=== PATIENT | male | born 1995 | race Caucasian/White ===

== ENCOUNTER 2018-04-02 15:06 | Emergency (ER) | payer BC, MEDICAID ==
[2018-04-02 15:44] VITALS: BP 129/74
[2018-04-02] MEDS ORDERED: DOXYcycline CAP(*) 100 MG PO ONE (15:51)
--- NOTE | 2018-04-02 15:51 | UC ---
Skin Complaint HPI - HPI Summary HPI Summary: 23 yo male presents with tick bite. He tells me that 72 hours ago he was bitten by a tick on his lower abdomen. He thinks the tick was attached about 12 hours and he removed it. Says it was not engorged. He states that he has had lyme disease in the past and is adamantly requesting prophylactic doxycycline treatment today. Denies fever, chills, headache, dizziness, joint pain. - History of Current Complaint Chief Complaint: UCSkin Time Seen by Provider: 04/02/18 15:47 Stated Complaint: TICK BITE Hx Obtained From: Patient Onset/Duration: Sudden Onset Onset Severity: Mild Current Severity: Mild Pain Intensity: 2 Pain Scale Used: 0-10 Numeric - Allergy/Home Medications Allergies/Adverse Reactions: Allergies Allergy/AdvReac Type Severity Reaction Status Date / Time No Known Allergies Allergy Verified 04/02/18 15:44 Home Medications: Home Medications Levothyroxine TAB* [Synthroid TAB*] 75 mcg PO 0800 04/02/18 [History Confirmed 04/02/18] Quetiapine Fumarate [Seroquel 300 MG] 600 mg PO DAILY WITH MEAL 04/02/18 [ History Confirmed 04/02/18] lamoTRIgine [Lamotrigine ER] 200 mg PO BID 04/02/18 [History Confirmed 04/02/18] Review of Systems Constitutional: Negative Skin: Other - Tick bite lower abdomen Respiratory: Negative Cardiovascular: Negative Gastrointestinal: Negative Neurovascular: Negative Neurological: Negative Psychological: Negative All Other Systems Reviewed And Are Negative: Yes PMH/Surg Hx/FS Hx/Imm Hx Endocrine History: Hypothyroidism Psychological History: Bipolar Disorder - Surgical History Surgical History: None Surgery Procedure, Year, and Place: denies - Family History Known Family History: Positive: None - Social History Occupation: Employed Full-time Lives: With Family Alcohol Use: None Substance Use Type: None Smoking Status (MU): Never Smoked Tobacco Physical Exam - Summary Physical Exam Summary: GENERAL: NAD. WDWN. No pain distress. SKIN: Lower abdomen: there is a 7mm diameter of mild erythema and edema with central 1mm area of superficial skin loss. No streaking, bleeding, or drainage. NECK: Supple. Nontender. No lymphadenopathy. CHEST: No accessory muscle use. Breathing comfortably and in no distress. CV: Pulses intact. Cap refill <2seconds NEURO: Alert. PSYCH: Age appropriate behavior. Triage Information Reviewed: Yes Vital Signs: Initial Vital Signs Temp 98.8 F 04/02/18 15:40 Pulse 91 04/02/18 15:40 Resp 18 04/02/18 15:40 BP 129/74 04/02/18 15:40 Pulse Ox 100 04/02/18 15:40 Vital Signs Reviewed: Yes Course/Dx - Course Course Of Treatment: Tick bite. Will rx for doxycycline and have him f/u if he develops any symptoms of lyme disease. - Diagnoses Provider Diagnoses: Tick bite lower abdomen Discharge - Sign-Out/Discharge Documenting (check all that apply): Patient Departure All imaging exams completed and their final reports reviewed: No Studies - Discharge Plan Condition: Stable Disposition: HOME Patient Education Materials: Lyme Disease (ED), Tick Bite (ED) Referrals: Florentin You MD [Primary Care Provider] - Additional Instructions: If you develop a fever, shortness of breath, chest pain, new or worsening symptoms - please call your PCP or go to the ED. - Billing Disposition and Condition Condition: STABLE Disposition: Home
== END 2018-04-02 16:00 | disposition home or self-care (01) ==
LOC: UCEAST 15:06
DX: S30.861A Insect bite (nonvenomous) of abdominal wall, initial encounter (principal); E03.9 Hypothyroidism, unspecified; F31.9 Bipolar disorder, unspecified; Z79.899 Other long term (current) drug therapy; W57.XXXA Bitten or stung by nonvenomous insect and other nonvenomous arthropods, initial encounter; Y92.9 Unspecified place or not applicable
CPT/HCPCS: 99202; A9270-GY; G0463

== ENCOUNTER 2018-12-08 14:13 | Emergency (ER) | payer BC, MEDICAID ==
[2018-12-08 14:28] VITALS: BP 123/59
--- NOTE | 2018-12-08 14:33 | UC ---
Skin Complaint HPI - HPI Summary HPI Summary: 23-year-old male presents with complaints of a red, tender lesion to his left thigh for the past 2 weeks. States has opened and drained a couple times but not improving. Denies fever or chills. - History of Current Complaint Chief Complaint: UCSkin Time Seen by Provider: 12/08/18 14:16 Stated Complaint: LEFT LEG WOUND Hx Obtained From: Patient Pain Intensity: 3 - Allergy/Home Medications Allergies/Adverse Reactions: Allergies Allergy/AdvReac Type Severity Reaction Status Date / Time No Known Allergies Allergy Verified 12/08/18 14:24 PMH/Surg Hx/FS Hx/Imm Hx Endocrine History: Hypothyroidism Psychological History: Anxiety, Depression - Surgical History Surgical History: None Surgery Procedure, Year, and Place: denies - Family History Known Family History: Positive: None - Social History Alcohol Use: None Substance Use Type: None Smoking Status (MU): Never Smoked Tobacco Review of Systems All Other Systems Reviewed And Are Negative: Yes Constitutional: Negative: Fever, Chills Skin: Positive: Other - See HPI Respiratory: Positive: Negative Cardiovascular: Positive: Negative Gastrointestinal: Positive: Negative Genitourinary: Positive: Negative Musculoskeletal: Positive: Negative Neurological: Positive: Negative Is Patient Immunocompromised?: No Physical Exam - Summary Physical Exam Summary: GENERAL APPEARANCE: Well developed, well nourished, alert and cooperative, and appears to be in no acute distress. CARDIAC: Normal S1 and S2. No S3, S4 or murmurs. Rhythm is regular. There is no peripheral edema, cyanosis or pallor. Extremities are warm and well perfused. Capillary refill is less than 2 seconds. Peripheral pulses intact. LUNGS: Clear to auscultation without rales, rhonchi, wheezing or diminished breath sounds. ABDOMEN: Positive bowel sounds. Soft, nondistended, nontender. No guarding or rebound. No masses or hepatosplenomegally. MUSKULOSKELETAL: ROM intact to all extremities. No joint erythema or tenderness. Normal muscular development. Normal gait. SKIN: Skin normal color, texture and turgor. Single, erythematous, circular pustular lesion to the medial aspect of the mid thigh approximately 1 cm in diameter. Triage Information Reviewed: Yes Vital Signs: Initial Vital Signs Temp 99.6 F 12/08/18 14:24 Pulse 115 12/08/18 14:24 Resp 16 12/08/18 14:24 BP 123/59 12/08/18 14:24 Pulse Ox 97 12/08/18 14:24 Vital Signs Reviewed: Yes Course/Dx - Course Course Of Treatment: 23-year-old male presents with complaints of a red, tender lesion to his left thigh for the past 2 weeks. States has opened and drained a couple times but not improving. Denies fever or chills. Afebrile. Mildly tachycardic otherwise VSS. Patient had a single, erythematous, circular pustular lesion to the medial aspect of the mid thigh approximately 1 cm in diameter consistent with an infected hair follicle and otherwise unremarkable exam. Will treat with doxycycline 100 mg BID x 7 days and have the patient perform hot packing at least 4 times a day. He is to follow up with his PCP in 5-7 days if no improvement. Anticipatory guidance and warning symptoms reviewed with patient. Verbalizes understanding and agrees with POC. - Differential Diagnoses - Skin Complaint Differential Diagnoses: Abscess, Cellulitis, MRSA - Diagnoses Provider Diagnosis: Folliculitis Discharge - Sign-Out/Discharge Documenting (check all that apply): Patient Departure All imaging exams completed and their final reports reviewed: No Studies - Discharge Plan Condition: Stable Disposition: HOME Prescriptions: Doxycycline Hyclate 100 mg PO BID #14 tablet Patient Education Materials: Folliculitis (ED) Referrals: Florentin You MD [Primary Care Provider] - 5 Days Additional Instructions: The lesion on your leg appears to be an infected hair follicle, a condition called folliculitis. Start doxycycline 100 mg 1 tablet twice a day for 7 days. Use a moist hot pack to the affected area for 10-15 minutes at lease 4 times a day. Follow up with your primary care provider in 5-7 days if symptoms do not improve. Seek immediate medical attention in the emergency room if you develop fever greater than 100.5 F, have redness that spreads, get a red streak that goes up your leg, severe pain, or any worsening of symptoms. - Billing Disposition and Condition Condition: STABLE Disposition: Home - Attestation Statements Provider Attestation: I was available for consult. This patient was seen by the NORBERTO. The patient was not presented to, seen by, or examined by me. -Lakshmi
== END 2018-12-08 14:51 | disposition home or self-care (01) ==
LOC: UCEAST 14:13
DX: L73.9 Follicular disorder, unspecified (principal); E03.9 Hypothyroidism, unspecified; F41.9 Anxiety disorder, unspecified; F32.9 Major depressive disorder, single episode, unspecified
CPT/HCPCS: 99212; G0463